=== PATIENT | female | born 1985 | race Caucasian/White ===

== ENCOUNTER 2017-09-13 04:40 | Inpatient (IN) ==
[2017-09-13] MEDS ORDERED: CITRIC ACID/SODIUM CITRATE 30ml PO ONE (05:21)
[2017-09-13] MEDS ORDERED: FAMOTIDINE PB 20 MG/50 ML BAG IV ONE (05:21)
[2017-09-13] MEDS ORDERED: CEFAZOLIN 1 G INJECTION IVP ONE (05:21)
[2017-09-13] MEDS: LR 1,000 ML IV SCH ×3 (05:35→11:08)
[2017-09-13] MEDS ORDERED: CEFAZOLIN PREMIX (MC ONLY) 2 GM/50 ML BAG IV ONE (05:59)
[2017-09-13 06:08] VITALS: BMI 37.0
[2017-09-13] MEDS ORDERED: FentaNYL 100 MCG/2 ML INJECTION ONE (06:17)
[2017-09-13] MEDS ORDERED: MORPHINE SULFATE PF 5mg/10ml INJ (Duramorph) ONE (06:17)
[2017-09-13] MEDS ORDERED: OXYTOCIN BOLUS BAG 30 UNIT/500 ML ML IV SCH (07:00)
[2017-09-13] MEDS ORDERED: ONDANSETRON 4 MG/2 ML INJECTION ONE (07:10)
[2017-09-13] MEDS ORDERED: CALCIUM CARBONATE Chewable 500mg TABLET PO PRN (07:18)
[2017-09-13] MEDS ORDERED: ACETAMINOPHEN 500 MG TABLET PO PRN (07:18)
[2017-09-13] MEDS ORDERED: HYDROCORTISONE 2.5% CREAM 30gm RECTALLY PRN (07:18)
[2017-09-13] MEDS ORDERED: SIMETHICONE 80 MG CHEWABLE TABLET PO PRN (07:18)
[2017-09-13] MEDS ORDERED: OXYTOCIN DRIP 30 UNIT/500 ML ML IV SCH (07:30)
--- NOTE | 2017-09-13 07:39 | Operative Note ---
Operative Note - Date of Operation Date of Operation: 09/13/17 - General : 1 Expected Date of Delivery: 09/22/17 - Preoperative Diagnosis Gestational Diabetes, PROM, Desires sterilization Preoperative Diagnosis: Desires PLTCS - Postoperative Diagnosis same as preoperative - Procedure Primary, Low-transverse - Surgeon Surgeon: Daniel Wyman DO - Rescue Instructor OB Rescue Instructor: Eliane Acosta MD - Anesthesia Anesthesia Provider: Brandon Kincaid CRNA Anesthesia Type: Combined Spinal/Epidural - Complications Complications: None - Estimated Blood Loss Estimated Blood Loss:: 800 - Findings Findings: viable male Comments: Rashel - APGARS : 8/9 - Weight [place] Weight (grams): 3126 - [place] Name [place] Name: Rashel - Indications Indications: PROM, Desired PLTCS - Description of Procedure Description of Procedure: [place] [id number] Refrence #[id number]
[2017-09-13] MEDS ORDERED: NALOXONE 2 MG/2 ML INJECTION PFS IVP PRN (07:48)
[2017-09-13] MEDS ORDERED: NALBUPHINE 10 MG/ML INJECTION IVP PRN (07:48)
[2017-09-13] MEDS ORDERED: DiphenhydrAMINE 50 MG/ML INJECTION IVP PRN (07:48)
[2017-09-13] MEDS ORDERED: ONDANSETRON 4 MG/2 ML INJECTION IVP PRN (07:48)
--- NOTE | 2017-09-13 07:53 | Anesthesia Preoperative Report ---
Anesthesia Epidural/Spinal Rec - Date and Time Date: 09/13/17 Preoperative Diagnosis: desire c/s, polyhydrominos, desire sterilization Procedure: Plan: Spinal - Vital Signs Vital Signs: Temperature 98.1 F 09/13/17 06:10 Pulse Rate 97 09/13/17 06:10 Respiratory Rate 20 09/13/17 06:10 Blood Pressure 144/83 H 09/13/17 06:10 Pulse Oximetry 97 09/13/17 06:10 NPO since: mn /Para: P:0 Heart Rate: 140 - Medictaions & Allergies Inpatient Medications: Current Medications Acetaminophen (Tylenol) 500 - 1,000 mg PO Q4H PRN PRN Reason: Pain Hydrocodone Bitart/Acetaminophen ([place] 5/325) 1 - 2 tab PO Q4H PRN PRN Reason: Pain Calcium Carbonate (Tums) 500 mg PO O PRN Cephalexin HCl (Keflex) 500 mg PO Q8HR [facility] Stop: 09/15/17 01:01 Diphenhydramine HCl (Benadryl) 25 - 50 mg PO Q6H PRN PRN Reason: Itching Diphenhydramine HCl (Benadryl) 25 - 50 mg IVP Q3H PRN PRN Reason: Itching Stop: 09/14/17 07:47 Docusate Calcium (Surfak) 240 mg PO DAILY [facility] Hydrocortisone (Anusol-Hc 2.5% Cream) 1 applic RECTALLY PRN PRN PRN Reason: Hemorrhoids Lactated Ringer's (Lactated Ringers) 1,000 mls @ 999 mls/hr IV .Q1H1M [facility] Last Admin: 09/13/17 06:45 Dose: 999 mls/hr Dextrose/Lactated Ringer's (Dextrose 5%-Lactated Ringers) 1,000 mls @ 100 mls/ hr IV .Q10H [facility] Oxytocin (Pitocin Drip) 30 unit in 500 mls @ 50 mls/hr IV .Q10H [facility] Stop: 09/13/17 17:29 Ibuprofen (Motrin) 800 mg PO Q8H [facility] Magnesium Hydroxide (Mom) 30 ml PO HS PRN PRN Reason: Constipation Metronidazole (Flagyl) 500 mg PO Q8HMC [facility] Stop: 09/15/17 00:01 Nalbuphine HCl (Nubain) 5 - 10 mg IVP Q4H PRN PRN Reason: Pain,Severe Itching,or Nausea Stop: 09/14/17 07:47 Naloxone HCl (Narcan) 0.1 mg IVP Q2M PRN Stop: 09/14/17 07:47 Ondansetron HCl (Zofran) 4 mg IVP Q4H PRN PRN Reason: Nausea &/or vomiting Stop: 09/14/17 07:47 Simethicone (Mylicon) 80 mg PO [facility] Simethicone (Mylicon) 80 mg PO [facility] PRN PRN Reason: Gas Allergies/Adverse Reactions: Allergies Allergy/AdvReac Type Severity Reaction Status Date / Time No Known Allergies Allergy Verified 09/13/17 07:08 - Home Medications Home Medications: Home Medications Medication Instructions Recorded Confirmed Type Insulin Detemir [Levemir] 30 unit SQ HS 09/12/17 09/13/17 History - Medical History Respiratory: Reports: Asthma (as child) DENIES: Sleep Apnea Gastrointestional: Reports: Gastroesophageal Reflux Disease (), Morbid Obesity Neuro/Musculoskeletal: Reports: Headaches (history of migraines) Renal/Endocrine: Reports: Diabetes Mellitus Type 2 (gestational diabetes with blood sugar of 94 this am. ), Other (GESTATIONAL DIABETES) Other History: Reports: Anesthesia Reactions (HARD TO WAKE UP,CAN TASTE MEDS) - Surgical History Reproductive Surgery/Treatment: Reports: Laparoscopy (X2), Other (TUBAL REMOVAL) DENIES: Section Anesthesia Reactions: None Hx Family Anesthesia Reaction: No History of Motion Sickness: No - Social History Smoking Status: Current every day smoker Second Hand Exposure: Yes Substance Use Type: does not use Alcohol Intake Frequency: does not drink Hx Chewing Tobacco Use: No - Pertinent Findings Lab Data: CBC and BMP 09/13/17 05:36 - Physical Exam Respiratory Exam: lungs clear, bilateral breath sounds equal Cardiovascular Exam: regular rate and rhythm - Airway Assessment Mallampati Score: II TMD: 3 Fingerbreadths Neck Extension: fair Teeth: chipped teeth/crowns (multiple ), poor dentation Overall Assessment: no airway concerns - ASA ASA Score: 3 - Discussion Discussion: Discussed risks/options/alternatives of anesthesia and questions answered. Patient consents. Nursing pain assessment noted. Anesthesia Discussion: family member Attestation Statement: Prior to the delivery of any anesthetic medication, I examined the patient, developed the plan, obtained the patient's consent and discussed the risk and benefits of the procedure with the patient/guardian.
[2017-09-13] MEDS: D5LR 1,000 ML IV SCH ×2 (08:22→22:09)
--- NOTE | 2017-09-13 09:23 | Anesthesia Postoperative Note ---
- Date and Time Date: 09/13/17 Time: 09:20 - Status Patient Participated in Evaluation: Patient Participated in Person Vital Signs: Temperature 98.1 F 09/13/17 06:10 Pulse Rate 97 09/13/17 06:10 Respiratory Rate 20 09/13/17 06:10 Blood Pressure 144/83 H 09/13/17 06:10 Pulse Oximetry 97 09/13/17 06:10 Respiratory Function: Airway Patent, Regular Respirations Cardiovascular Function: Regular Pulse Mental Status: Alert and Oriented Pain Intensity: 0 Hydration: Taking PO Fluids Complications During Recover: None Apparent - Follow-Up Instructions Instructions: Per Surgeon
[2017-09-13] MEDS: SIMETHICONE 80 MG CHEWABLE TABLET PO SCH ×3 (09:30→22:10)
[2017-09-13] MEDS: IBUPROFEN 800 MG TABLET PO SCH ×2 (09:31→16:55)
[2017-09-13] MEDS: MetroNIDAZOLE 500 MG TABLET PO SCH ×2 (09:31→16:24)
[2017-09-13] MEDS: DOCUSATE CALCIUM 240 MG CAPSULE PO SCH (09:31)
[2017-09-13] MEDS: DiphenhydrAMINE 25 MG CAPSULE PO PRN ×2 (09:35→22:39)
[2017-09-13] MEDS: HYDROCODONE/APAP 5mg/325mg TABLET PO PRN (13:49)
--- NOTE | 2017-09-13 18:14 | Operative Note ---
DATE OF SERVICE 09/13/2017 PREOPERATIVE DIAGNOSES 1. Desires primary low transverse section. 2. Desires permanent sterilization. 3. Premature rupture of membranes. 4. Polyhydramnios. 5. Gestational diabetes. POSTOPERATIVE DIAGNOSES 1. Desires primary low transverse section. 2. Desires permanent sterilization. 3. Premature rupture of membranes. 4. Polyhydramnios. 5. Gestational diabetes. 6. Delivered. PROCEDURE Primary low transverse section and left salpingectomy. SURGEON Daniel Wyman, PERFORMANCE CONSULTANT Eliane Acosta MD KNIFE BLADE POLISHER Brandon Kincaid, [facility] DIRECTOR ANESTHESIA Combined spinal epidural. FINDINGS Viable male infant with Apgars of 8/9, name Rashel Marley, WT 3126 g. ESTIMATED BLOOD LOSS DURING PROCEDURE 800 mL. IV FLUIDS DURING PROCEDURE 1800 mL. URINE OUTPUT AT END OF PROCEDURE 150 mL clear urine. COMPLICATIONS None. SPECIMENS Left fallopian tube. INDICATIONS FOR PROCEDURE This is a 32-year-old G1, P0 that presented at term with premature rupture of membranes and desired primary elective section and permanent sterilization. Risks, benefits and alternatives to the procedure were discussed with the patient. Questions were elicited and answered. She chose to proceed with primary elective section with left salpingectomy. NARRATIVE OF PROCEDURE Patient was taken to the operating room where spinal epidural anesthesia was obtained without difficulty. She was then prepped and draped in the dorsal supine position with a leftward tilt. Time-out was performed along with an Allis check. A Pfannenstiel skin incision was made. The incision was then carried through the underlying layers to the fascia. The fascia was then incised in the midline and the fascial incision was extended sharply with the Crandall scissors laterally. At this time the superior aspect of the fascial incision was grasped and the rectus muscles were dissected off bluntly. Attention was turned to the lower aspect of the fascia incision which was grasped with a Darius, elevated and the rectus muscles dissected off sharply with the Crandall scissors. At this time the rectus muscles were bluntly with a Rachel and the peritoneum was identified and grasped with the Rachel clamp , elevated and entered sharply with Metzenbaum scissors. This incision was then extended superiorly and inferiorly with good visualization of the bladder. The bladder blade was then inserted and the bladder flap was made sharply with the Metzenbaum scissors and extended laterally. The bladder blade was then reinserted. At this time the uterine incision was made in a transverse fashion. Amniotomy was performed and the was delivered in the cephalic presentation. Nose and mouth were suctioned with bulb suction and then the remainder of the was delivered. The cord was clamped and received by the utilization management rn. The placenta was expressed and the uterus was exteriorized and cleared of all clot and debris. The uterus was then repaired with 0-Monocryl in a running locked fashion. Excellent hemostasis was noted. The bladder flap was then repaired with 2-0 Vicryl in a running fashion. One [id number] suture of 3-0 chromic was placed at the right apex of the incision and excellent hemostasis was noted. At this time inspection of the tubes are ovaries revealed the prior right salpingectomy from an ectopic and normal-appearing ovary with a normal-appearing left ovary and left fallopian tube. A suture of 3- 0 chromic was then placed around the tube and mesosalpinx as close to the fundus as possible, ligating the proximal tube and fimbriae. At this time a second suture was placed through the mesosalpinx, ligating the tube and a third suture through the mesosalpinx, ligating the mesosalpinx. The left fallopian tube was amputated and sent to Pathology. Excellent hemostasis was noted. The uterus was then returned to the abdomen. Excellent hemostasis was noted and the peritoneum was closed with 3-0 Monocryl in a running fashion. The fascia was closed with 0-Vicryl in a running fashion. The subcutaneous layer was irrigated with normal saline. Subcutaneous closure with plain gut was performed in a running fashion. The skin was closed with 4-0 Monocryl and Dermabond. The patient tolerated the procedure well. Sponge, lap and needle counts were correct x 2. MTDD
[2017-09-14] MEDS: MetroNIDAZOLE 500 MG TABLET PO SCH ×3 (00:06→15:51)
[2017-09-14] MEDS: IBUPROFEN 800 MG TABLET PO SCH ×3 (00:59→22:26)
[2017-09-14] MEDS: HYDROCODONE/APAP 5mg/325mg TABLET PO PRN ×3 (07:50→19:21)
[2017-09-14] MEDS: DOCUSATE CALCIUM 240 MG CAPSULE PO SCH (08:25)
[2017-09-14] MEDS: SIMETHICONE 80 MG CHEWABLE TABLET PO SCH ×5 (08:25→22:27)
--- NOTE | 2017-09-14 10:51 | OB/GYN Progress Note ---
OB-PP Progress Note - General PPD1 Maternal Group B Strep: Positive Maternal blood type: A+ Maternal Rubella Status: Immune - Subjective Date: 09/14/17 Lochia: Minimal Pain: controlled Voiding: voiding Nausea or Vomiting Present: No - Objective Vital Signs: Last Vital Signs Temp 98.0 F 09/14/17 08:20 Pulse 84 09/14/17 08:20 Resp 18 09/14/17 08:20 BP 124/65 09/14/17 08:20 Pulse Ox 98 09/14/17 08:20 Urine Output: good General: alert and oriented Abdomen: fundus firm Incision: dry, dressed Extremities: non-tender Laboratory: Laboratory Results - last 24 hr 09/13/17 09/13/17 09/13/17 10:50 13:45 13:52 WBC 24.1 H D RBC 4.03 Hgb 12.0 Hct 35.2 L MCV 87.3 MCH 29.8 MCHC 34.1 RDW Std Deviation 41.9 Plt Count 285 MPV 9.7 Glucometer 89 64 09/13/17 09/13/17 15:36 20:10 WBC RBC Hgb Hct MCV MCH MCHC RDW Std Deviation Plt Count MPV Glucometer 108 105 - Assessment Assessment: SP, Primary C/S, Tubal Ligation - Plan Plan: routine care
[2017-09-14 22:25] VITALS: TEMP 97.9
[2017-09-15] MEDS: MetroNIDAZOLE 500 MG TABLET PO SCH (00:07)
[2017-09-15] MEDS: IBUPROFEN 800 MG TABLET PO SCH ×2 (00:07→08:04)
[2017-09-15] MEDS: HYDROCODONE/APAP 5mg/325mg TABLET PO PRN ×3 (00:08→11:03)
[2017-09-15 00:32] VITALS: RESP 18
[2017-09-15 06:22] VITALS: BP 142/80; PULSE 89; O2SAT 98
[2017-09-15] MEDS: DOCUSATE CALCIUM 240 MG CAPSULE PO SCH (08:04)
--- NOTE | 2017-09-15 09:02 | OB/GYN Progress Note ---
OB-PP Progress Note - General PPD2 POD:: POD2 Maternal Group B Strep: Positive Maternal blood type: A+ Maternal Rubella Status: Immune - Subjective Date: 09/15/17 Lochia: Minimal Pain: controlled Voiding: voiding Nausea or Vomiting Present: No - Objective Vital Signs: Last Vital Signs Temp 97.9 F 09/15/17 06:21 Pulse 89 09/15/17 06:21 Resp 18 09/15/17 06:21 BP 142/80 H 09/15/17 06:21 Pulse Ox 98 09/15/17 06:21 General: alert and oriented Cardiovascular: regular rate,rhythm Respiratory: non-labored Abdomen: fundus firm Incision: normal, clean, dry, intact Extremities: non-tender Side: bilateral Site: ankle Edema Degree: 1+ - Assessment Assessment: SP, Primary C/S, Tubal Ligation - Plan Plan: routine care, discharge home
[2017-09-15] MEDS: SIMETHICONE 80 MG CHEWABLE TABLET PO SCH (11:05)
== END 2017-09-15 11:06 | disposition home or self-care (01) | DRG 765 ==
LOC: OBOBS 04:40 → MC 04:41
PROVIDERS: ADMIT Obstetrics & Gynecology; ATTEND Obstetrics & Gynecology